=== PATIENT | female | born 1980 | race Caucasian/White ===

== ENCOUNTER → 2019-10-05 | Outpatient (CLI) | payer OTHER ==
--- NOTE | 2019-10-05 09:45 | Diagnostic Imaging Report ---
PROCEDURE: MR imaging of the brain without contrast. TECHNIQUE: Multiplanar, multisequence MR imaging of the brain was performed without contrast. INDICATION: Blackout spells. No prior studies are available for comparison. The ventricles and sulci are within normal limits. There is no diffusion restriction. The normal expected flow-voids within the carotid siphons are seen. No intra-axial or extra-axial hemorrhage is detected. The corpus callosum is unremarkable. The sella and parasellar structures are unremarkable. IMPRESSION: Unremarkable noncontrast MRI of the brain. Dictated by: Dictated on workstation # [id number]
== END ==
LOC: RAD 08:14
PROVIDERS: ATTEND Nurse Practitioner
DX: R55 Syncope and collapse (principal)
CPT/HCPCS: 70551